=== PATIENT | female | born 1960 | race Two or more races ===

== ENCOUNTER → 2016-09-13 | Outpatient (CLI) | payer MEDICARE, MEDICAID ==
--- NOTE | 2016-09-13 17:48 | WOMENS IMAGING REPORT ---
EXAM DESCRIPTION: U/S BREAST UNILAT LIMITED COMPLETED DATE/TIME: 09/13/2016 9:17 am REASON FOR STUDY: R92.8 COMPARISON: Mammograms 04/22/2016, 05/03/2016 TECHNIQUE: Real-time and static grayscale imaging performed of the left breast targeted to the area of mammographic concern. Selected color Doppler images recorded. LIMITATIONS: None. FINDINGS: In the left breast retroareolar region, a mammographic nodule is present on films from Mar ust dated April 2016. Ultrasound April 2016 demonstrated a well-circumscribed hypoechoic luba id nodule measuring about 8 mm in diameter Today's ultrasound demonstrates a hypoechoic solid nodule in the left breast retroareolar region vinicio uring about 8 to 9 mm in diameter. There is internal color flow. This could represent a very small fibroadenoma or papilloma. Malignancy could not entirely be excluded. Evaluation of this small nodule could either be with serial follow-up mammograms and ultrasounds ever y 6 months to determine stability over 2 year period, or this nodule could be evaluated with a ultras ound-guided core biopsy and post biopsy clip placement. BIRAD: 4 Suspicious. Biopsy should be considered. RECOMMENDATION: RECOMMENDED FOLLOW-UP: Ultrasound-guided core biopsy and post biopsy clip placement recommended COMMENT: The [employer] ([employer]) has developed recommendations for screening MRI of the breasts in certain patient populations, to be used in conjunction with mammography. Breast MRI s urveillance may be appropriate for women with more than 20% lifetime risk of developing breast cancer as determined by genetic testing, significant family history of the disease, or history of mantle r adiation for Hodgkins Disease. [employer] Practice Guidelines 2008. TECHNICAL DOCUMENTATION: JOB ID: [id number] [employer]- All Rights Reserved
== END ==
LOC: WI 07:41
PROVIDERS: ATTEND Family Medicine
DX: R92.8 Other abnormal and inconclusive findings on diagnostic imaging of breast (principal)
CPT/HCPCS: 76642

== ENCOUNTER → 2016-10-03 | Outpatient (CLI) | payer MEDICARE, MEDICAID ==
[2016-10-03 12:37] LABS: PROTHROMBIN TIME 13.2 SEC (11.4-15.4)
== END ==
LOC: OD 11:51
PROVIDERS: ATTEND Radiology Radiation Oncology
DX: Z79.01 Long term (current) use of anticoagulants (principal)
CPT/HCPCS: 36415; 85610

== ENCOUNTER → 2016-10-03 | Day surgery (SDC) | payer MEDICARE, MEDICAID ==
[~2016-10-03] MED LIST: LIDOCAINE 2% INJ (20 MG/ML) 20 ML MDV ONE
== END ==
LOC: WI 12:37
PROVIDERS: ATTEND Family Medicine
PROC: 0HBU3ZX Excision of Left Breast, Percutaneous Approach, Diagnostic (ICD-10-PCS; principal; 2016-10-03)
DX: R92.8 Other abnormal and inconclusive findings on diagnostic imaging of breast (principal); N60.12 Diffuse cystic mastopathy of left breast; D24.2 Benign neoplasm of left breast; R92.0 Mammographic microcalcification found on diagnostic imaging of breast
CPT/HCPCS: 36415; 85610; 88342 ×2; 88305 ×2; 19083; J3490